=== PATIENT | male | born 2000 | race Hispanic/Latino ===

== ENCOUNTER 2023-05-20 09:09 | Emergency (ER) | payer SELFPAY ==
[2023-05-20 09:14] VITALS: BP 138/88
--- NOTE | 2023-05-20 09:49 | ED.GENMED ---
History of Present Illness
General
Chief Complaint: Skin Surface Trauma
Source: patient
Exam Limitations: none
Time Seen by Provider: 05/20/23 09:30
Travel History
Have you had any contact with someone who has COVID-19?: No
Do you have any symptoms of coronavirus? Fever > 100 degrees, chills, cough, shortness of breath, sore throat, loss of taste or smell, muscle aches, or headache?: No
History of Present Illness
History of Present Illness:
22-year-old male caught his left hand in a coiled machine at work. Significant injury to his left third and fourth digit. Tetanus is up-to-date. No allergies.
Past History
Past History
ED Past Medical History: None
Review of Systems
Review of Systems
All Other Systems: Not applicable
Phy Exam
Physical Exam
Physical Exam:
General: Nontoxic appearing in no distress
Skin: Warm and dry, no rash
Neuro: Alert, nontoxic, grossly nonfocal
Psychiatric: Good eye contact and appropriate
Musculoskeletal: Left hand gloved with blood at the tips of the third and fourth digit. Palpable deformity at the tips with likely amputation into the distal glove of the tips.
Course
Orders/Labs/Results
Orders:
Orders
05/20/23 10:07
CeFAZolin 1 GRAM [Ancef] 1 gram in 5 ml IV NOW
05/20/23 10:22
Hand, Left 3 View [CR Hand - Left Min 3 Views] Urgent
Comment:
Reason For Exam: Amputated third and fourth digit
Vital Signs
Initial and Last Documented VS:
Initial Vital Signs
Temp Resp BP
98.1 F 18 138/88
05/20/23 09:14 05/20/23 09:14 05/20/23 09:14
Last Documented Vital Signs
Temp Pulse Resp BP Pulse Ox
98.1 F 61 16 148/77 99
05/20/23 09:14 05/20/23 11:19 05/20/23 11:19 05/20/23 11:19 05/20/23 11:19
*Pulse Oximetry
Patient hypoxic: no
*Critical Care Note
Total Time (30-74mins, 75-104mins- exclusive of procedures): Not Applicable
Update Note
Update Note:
Clot was carefully cut off. Total amputation third and fourth digit. Irrigated 1% bupivacaine digital block done to the third and fourth digit. Amputated parts were carefully irrigated with saline covered with sterile saline gauze and packed with
ice. Orthopedics contacted awaiting further opinion antibiotics ordered.
1045.... [facility] was contacted about 30 minutes ago. Waiting for callback. Our orthopedic replied that this should be sent to a transplant center. Awaiting callback
1100... Pictures of the amputated pieces along with x-rays were sent to the doctor Pj at [facility]. He stated these were not transplantable and to dress them and follow-up with closure is reasonable. Discussed with our orthopedist
who has arrangements for this to be done this week. Discussed with patient.
ED Attending Note
-
Portions of this chart may have been created with voice recognition software.� Occasional wrong word or��sound alike� substitutions may have occurred due to the inherent limitations of voice recognition software.
Discharge Plan
Departure
Patient Disposition: Home (Routine Discharge)
Date of Disposition: 05/20/23
Time of Disposition: 11:12
Patient with high blood pressure during this ER visit?: Yes
Discharge Problem:
Amputated third and fourth digit
Instructions: Amputation of the Finger or Fingertip (DC), BLOOD PRESSURE
Prescriptions:
New
cephalexin 500 mg capsule
500 mg PO QID 7 Days Qty: 28 0RF
Referrals:
Bushra Ohara, [Active] - Follow up in 2-3 days
NONE,* [Family Provider] -
Activity Restrictions/Additional Instructions:
Call the orthopedist listed above Monday morning. He has arranged for his partner, Dr. Mccrary to give further care for this this week.
Take antibiotics as directed
Keep wounds covered
Advil or Motrin for pain
Another option would be Dr. Oliva at [facility]. If for some reason the above physician does not work out he states he would be happy to reevaluate and give further care for this this week.
Your prescription was sent to the [facility] pharmacy on [address] in [place]
Interventions
Interventions:
*Risk Screen - Suicide Last Done: 05/20/23 09:48
*General Assessment Last Done: 05/20/23 09:48
*Neglect/Abuse Screening Last Done: 05/20/23 09:48
ED- Fall Risk Assessment Last Done: 05/20/23 11:26
*ED COVID-19 Vaccine History Last Done: 05/20/23 09:48
*Nursing Disposition Last Done: 05/20/23 11:26
ED-Skin Assessment Last Done: 05/20/23 09:46
Discharge Date and Time
Discharge Date/Time: 05/20/23 11:46
[2023-05-20] MEDS: ANCEF 5 IV (10:30)
[2023-05-20 10:31] VITALS: BP 130/73
[2023-05-20 11:19] VITALS: BP 148/77
== END 2023-05-20 11:46 | disposition home or self-care (01) ==
LOC: EMR 09:09
PROVIDERS: EMERGENCY PHYSICIAN Emergency Medicine
DX: S68.123A Partial traumatic metacarpophalangeal amputation of left middle finger, initial encounter (principal); S68.125A Partial traumatic metacarpophalangeal amputation of left ring finger, initial encounter; W31.89XA Contact with other specified machinery, initial encounter; Y99.0 Civilian activity done for income or pay; R03.0 Elevated blood-pressure reading, without diagnosis of hypertension
CPT/HCPCS: 99285; 96374; 64400; 73130

== ENCOUNTER 2023-05-25 06:37 | Day surgery (SDC) | payer OTHER, SELFPAY ==
[2023-05-25] VITALS (11 sets, daily range): BP systolic 104–136; BP diastolic 38–61; BMI 26.5
[2023-05-25] MEDS: TYLENOL 1000 MG PO (14:29)
[2023-05-25] MEDS: NORMOSOL-R 1000 IV (14:30)
== END 2023-05-25 19:20 | disposition home or self-care (01) ==
LOC: SDS 06:37
PROVIDERS: ATTENDING PHYSICIAN Orthopaedic Surgery
DX: S68.623A Partial traumatic transphalangeal amputation of left middle finger, initial encounter (principal); S68.625A Partial traumatic transphalangeal amputation of left ring finger, initial encounter; W31.82XA Contact with other commercial machinery, initial encounter; Y99.0 Civilian activity done for income or pay
CPT/HCPCS: 26236 ×2

== ENCOUNTER 2023-05-25 23:17 | Emergency (ER) | payer OTHER, SELFPAY ==
[2023-05-25 23:19] VITALS: BP 118/60
[2023-05-25 23:36] VITALS: BMI 25.7
[2023-05-25 23:39] VITALS: BP 125/52
--- NOTE | 2023-05-25 23:51 | ED.GENMED ---
History of Present Illness
General
Chief Complaint: Post Operative Problem(s)
Source: patient
Time Seen by Provider: 05/25/23 23:42
Travel History
Have you had any contact with someone who has COVID-19?: No
Do you have any symptoms of coronavirus? Fever > 100 degrees, chills, cough, shortness of breath, sore throat, loss of taste or smell, muscle aches, or headache?: No
History of Present Illness
History of Present Illness:
22-year-old male status postrepair of left middle and ring finger amputation done earlier today by orthopedic surgeon, Dr. Mccrary, who approximately 30 minutes prior to arrival developed body shaking which is now fully resolved. Patient and
girlfriend were concerned prompting them to bring him to the emergency department today. Patient has been taking his antibiotics, Motrin/Tylenol and oxycodone as needed for pain as directed. He has no fevers, body aches, abdominal pain, nausea,
vomiting or any other concerns. Patient states all symptoms that her initially wanting him to come to the emergency department are now fully resolved.
Past History
Past History
ED Past Medical History: None
ED Past Surgical History: Orthopedic
Social History
Tobacco: Non-smoker
Alcohol: None
Drug: None
Personal: Single
Living: with family
Employment: Employed
Review of Systems
Review of Systems
All Other Systems: ROS reviewed and negative except as documented in HPI and ROS
Phy Exam
Physical Exam
Physical Exam:
GENERAL: Alert , in no apparent distress
EYE: conjunctiva clear
Head: Normocephalic atraumatic
NECK: Supple,
ENT: mmm.
Heart: Regular rate and rhythm, no murmur
LUNGS: no acute respiratory distress, lungs clear to auscultation
NEUROLOGICAL: Alert and oriented, atremulous
SKIN: Warm and dry, skin intact.
MUSCULOSKELETAL: well perfused. Large splint/bandages/Titi wrap in place. Exposed digits cap refill is less than 2 seconds.
PSYCH: Normal and appropriate interaction.
Scores
Heart Failure Risk
Heart Failure Risk Score: Not Applicable
Heart Score for Chest Pain Patients
STEMI patient?: Not applicable
Withdrawal Assessment of Alcohol
Withdrawal Assessment Completed?: Not applicable
Course
Vital Signs
Initial and Last Documented VS:
Initial Vital Signs
Temp Pulse Resp BP Pulse Ox
98.4 F 114 18 118/60 100
05/25/23 23:19 05/25/23 23:19 05/25/23 23:19 05/25/23 23:19 05/25/23 23:19
Last Documented Vital Signs
Temp Pulse Resp BP Pulse Ox
98.4 F 114 18 125/52 95
05/25/23 23:19 05/25/23 23:19 05/25/23 23:19 05/25/23 23:39 05/25/23 23:39
MDM/Problems Addressed
Differential Diagnosis Includes:
Postoperative pain, given surgery earlier today I did have minimal concern for an acute infection, I do not have concern for bacteremia
MDM/Problems Addressed:
22-year-old male presenting emergency department for evaluation after he had an episode of shaking approximately 30 prior to arrival. No further symptoms on arrival to the ER. Patient is otherwise stable appearing, afebrile and in no acute
distress. I do think it is reasonable for patient to be discharged home and continue his outpatient management with medications as prescribed. Aware of return precautions emergency department but otherwise stable for discharge
*Pulse Oximetry
Patient hypoxic: no
*First Grade Teacher Interpretation
Rate: normal
Rhythm: sinus
*Critical Care Note
Total Time (30-74mins, 75-104mins- exclusive of procedures): Not Applicable
Data Reviewed
Review of Other/Old Records Reveals: Radiology Studies and Operative Reports
Source: patient
ED Attending Note
-
Portions of this chart may have been created with voice recognition software.� Occasional wrong word or��sound alike� substitutions may have occurred due to the inherent limitations of voice recognition software.
Discharge Plan
Departure
Patient Disposition: Home (Routine Discharge)
Date of Disposition: 05/25/23
Time of Disposition: 23:51
Patient with high blood pressure during this ER visit?: No
Discharge Problem:
Post-operative pain
Instructions: Postoperative Pain (DC)
Prescriptions:
No Action
cephalexin 500 mg capsule
500 mg PO QID 7 Days Qty: 28 0RF
Interventions
Interventions:
*Risk Screen - Suicide Last Done: 05/25/23 23:19
*General Assessment Last Done: 05/25/23 23:19
*Neglect/Abuse Screening Last Done: 05/25/23 23:19
ED- Fall Risk Assessment Last Done: 05/25/23 23:19
*ED COVID-19 Vaccine History Last Done: 05/25/23 23:19
ED-Skin Assessment Last Done: 05/25/23 23:37
[2023-05-26] VITALS: BP 123/47
== END 2023-05-26 00:07 | disposition home or self-care (01) ==
LOC: EMR 23:17
PROVIDERS: EMERGENCY PHYSICIAN Emergency Medicine
DX: G89.18 Other acute postprocedural pain (principal); Y99.0 Civilian activity done for income or pay
CPT/HCPCS: 99281

== ENCOUNTER 2023-06-13 06:12 | Day surgery (SDC) | payer OTHER, SELFPAY ==
[2023-06-13] VITALS (9 sets, daily range): BP systolic 97–149; BP diastolic 48–64; BMI 26.5; BMI 22.1
[2023-06-13] MEDS: CELEBREX 200 MG PO (07:58)
[2023-06-13] MEDS: TYLENOL 1000 MG PO (07:58)
== END 2023-06-13 11:52 | disposition home or self-care (01) ==
LOC: SDS 06:12
PROVIDERS: ATTENDING PHYSICIAN Orthopaedic Surgery
DX: T87.81 Dehiscence of amputation stump (principal); Y93.89 Activity, other specified; S68.113A Complete traumatic metacarpophalangeal amputation of left middle finger, initial encounter; X58.XXXA Exposure to other specified factors, initial encounter; Z98.890 Other specified postprocedural states
CPT/HCPCS: 15574; 15620

== ENCOUNTER 2024-05-08 16:16 | Emergency (ER) | payer BC, SELFPAY ==
[2024-05-08 16:22] VITALS: BP 123/85
--- NOTE | 2024-05-08 16:25 | ED.GENMED ---
ED Provider Triage
<Praneeth Terrazas PA-C - Last Filed: 05/08/24 16:25>
-
Patient seen by provider in Triage?: Seen in Triage
Attestation: A medical screening examination has been initiated by a qualified medical provider. Based on the assessment performed at this time, it has been determined that an emergent medical condition may exist and the patient has been informed
that further medical evaluation and possible additional diagnostic testing may be needed.
HPI: 23-year-old male presents with a weeks worth of chest pain constant in nature localized in the center of his chest. This is not pleuritic. No shortness of breath. No recent travel or surgery. No fever or cough. Vital signs are stable. EKG
and labs and chest x-ray ordered
GENERAL: Alert , in no apparent distress
EYE: No visual abnormalities.
NECK: Trachea midline
ENT: No visible abnormalities.
LUNGS: No acute respiratory distress
NEUROLOGICAL: Alert and oriented
SKIN: Skin intact. No visible changes.
MUSCULOSKELETAL: Moving extremities normally
PSYCH: Normal and appropriate interaction.
This is a medical evaluation conducted in person to initiate diagnostic evaluation and provide initial therapeutics. Please see further documentation by the treating clinician.
History of Present Illness
<Praneeth Terrazas PA-C - Last Filed: 05/08/24 16:25>
General
Chief Complaint: Chest Pain
Time Seen by Provider: 05/08/24 16:40
<Gina Pearson PA-C - Last Filed: 05/08/24 19:25>
General
Source: patient
Exam Limitations: none
History of Present Illness
History of Present Illness:
23yoM with no significant past medical history presenting with his significant other for evaluation of chest pain. Symptoms have been intermittent for the past week. He reports a squeezing pain in his left chest that comes and goes. Nothing seems
to make the pain better or worse. The pain last for several hours at a time before resolving. He also felt shaky yesterday. He called his PCP today to get an appointment but was referred to the ED for evaluation. He is otherwise asymptomatic and
denies any fevers, cough, vomiting, shortness of breath, abdominal pain. No pleuritic or exertional pain. No family history of heart disease.
Past History
<Praneeth Terrazas PA-C - Last Filed: 05/08/24 16:25>
Past History
ED Past Medical History: None
ED Past Surgical History: Orthopedic
Social History
Tobacco: Non-smoker
Alcohol: None
Drug: None
Personal: Single
Living: with family
Employment: Employed
Phy Exam
<Gina Pearson PA-C - Last Filed: 05/08/24 19:25>
General Physical Exam
General Presentation: well appearing and no apparent distress
General age: appears stated age
General Skin: warm and dry
General Habitus: normal
General Mental: alert
ENT Exam
ENT Exam: normocephalic
Cardiovascular Exam
Cardiovascular Exam: regular rate/rhythm and no murmur
Pulmonary Exam
Pulmonary Exam: lungs clear, no respiratory distress, no rales, chest non tender, no crackles and no rhonchi
Neurological Exam
Neurological Exam: alert
Jerome Coma Scale
Eye Opening: Spontaneous
Verbal Response: Oriented
Motor Response: Obeys Commands
GCS Total Score: 15
Skin Exam
Skin Exam: normal color and warm/dry
Psychiatric Exam
Psychiatric Exam: normal mood/affect
Scores
<Gina Pearson PA-C - Last Filed: 05/08/24 19:25>
Heart Score for Chest Pain Patients
STEMI patient?: No
History: Slightly or Non-Suspicious
ECG: Normal
Age: </= 45 years
Risk Factors: No Risk Factors
Troponin: </= Normal Limit
Heart Score for Chest Pain Patients: 0
Heart Score Risk: 2.5% MACE over next 6 weeks
Course
<Praneeth Terrazas PA-C - Last Filed: 05/08/24 16:25>
Orders/Labs/Results
Orders:
Orders
05/08/24 16:23
Electrocardiogram (*1) Urgent
Reason for Study: Chest Pain
EKG- Treatment ONCE
05/08/24 16:24
CR Chest - 2 Views Urgent
Comment:
Reason For Exam: chest pain
05/08/24 16:35
Complete Blood Count/With Diff Urgent
Comprehensive Metabolic Panel Urgent
TSH Urgent
Comment: ADD ON
Troponin I Urgent
05/08/24 16:54
Add On- LAB Urgent
Tests Added?: TSH
Abnormal Lab Results
05/08/24
16:35
BUN 21 H mg/dl
(20)
05/08/24 16:35
05/08/24 16:35
Vital Signs
Initial and Last Documented VS:
Initial Vital Signs
Temp Pulse Resp BP Pulse Ox
98.2 F 75 16 123/85 98
05/08/24 16:22 05/08/24 16:22 05/08/24 16:22 05/08/24 16:22 05/08/24 16:22
Last Documented Vital Signs
Temp Pulse Resp BP Pulse Ox
98.2 F 75 16 123/85 98
05/08/24 16:22 05/08/24 16:22 05/08/24 16:22 05/08/24 16:22 05/08/24 16:22
<Gina Pearson PA-C - Last Filed: 05/08/24 19:25>
Orders/Labs/Results
Orders:
Orders
05/08/24 16:23
Electrocardiogram (*1) Urgent
Reason for Study: Chest Pain
EKG- Treatment ONCE
05/08/24 16:24
CR Chest - 2 Views Urgent
Comment:
Reason For Exam: chest pain
05/08/24 16:35
Complete Blood Count/With Diff Urgent
Comprehensive Metabolic Panel Urgent
TSH Urgent
Comment: ADD ON
Troponin I Urgent
05/08/24 16:54
Add On- LAB Urgent
Tests Added?: TSH
Abnormal Lab Results
05/08/24
16:35
BUN 21 H mg/dl
(920)
05/08/24 16:35
05/08/24 16:35
Vital Signs
Initial and Last Documented VS:
Initial Vital Signs
Temp Pulse Resp BP Pulse Ox
98.2 F 75 16 123/85 98
05/08/24 16:22 05/08/24 16:22 05/08/24 16:22 05/08/24 16:22 05/08/24 16:22
Last Documented Vital Signs
Temp Pulse Resp BP Pulse Ox
98.2 F 75 16 123/85 98
05/08/24 16:22 05/08/24 16:22 05/08/24 16:22 05/08/24 16:22 05/08/24 16:22
Christopherlt;Gina Pearson PA-C - Last Filed: 05/08/24 19:25>
MDM/Problems Addressed
Differential Diagnosis Includes:
23yoM here with chest pain x 1 week. Intermittent L sided squeezing pain. Denies exertional or pleuritic symptoms. VSS. He is well appearing in no distress. Exam is reassuring. Differential diagnosis includes but is not limited to: musculoskeletal,
GERD, pericarditis, pneumothorax, pneumonia, doubt ACS, doubt PE
Initial ED plan: Check cardiac labs, TSH, EKG, and CXR.
<Gina Pearson PA-C - Last Filed: 05/08/24 19:25>
*EKG
Interpreted by ED Provider?: Yes
EKG Intrepretation Date: 05/08/24
Heart Rate: 70
Rate: normal
Rhythm: sinus
[place]: normal axis
Interval: normal interval
QRS Pattern: right bundle branch block
Ischemia: no ischemia
*Critical Care Note
Total Time (30-74mins, 75-104mins- exclusive of procedures): Not Applicable
<Gina Pearson PA-C - Last Filed: 05/08/24 19:25>
Update Note
Update Note:
EKG shows NSR without ischemic changes and troponin within normal limits. Remainder of labs unremarkable including normal electrolytes, glucose, and TSH. CXR is clear. HEART score is 0. No indication for hospitalization. He was advised to f/u with
his PCP and ED return precautions discussed. Patient in agreement with plan and was discharged in stable condition.
ED Attending Note
<Praneeth Terrazas PA-C - Last Filed: 05/08/24 16:25>
-
Portions of this chart may have been created with voice recognition software.� Occasional wrong word or��sound alike� substitutions may have occurred due to the inherent limitations of voice recognition software.
Discharge Plan
Departure
Patient Disposition: Home (Routine Discharge)
Date of Disposition: 05/08/24
Time of Disposition: 18:54
Patient with high blood pressure during this ER visit?: No
Discharge Problem:
Atypical chest pain
Instructions: Chest Pain PCP Follow Up
Prescriptions:
No Action
No Current Medications
0
Referrals:
Luca Gonzalez CRNP [Family Provider] -
Activity Restrictions/Additional Instructions:
Please follow-up with your family doctor tomorrow. Return to the ER with any new or worsening symptoms.
Interventions
Interventions:
*Risk Screen - Suicide Last Done: 05/08/24 16:22
*General Assessment Last Done: 05/08/24 16:22
*ED COVID-19 Vaccine History Last Done: 05/08/24 16:22
*Nursing Disposition Last Done: 05/08/24 19:16
ED- Cardiac Assessment Last Done: 05/08/24 18:30
Discharge Date and Time
Discharge Date/Time: 05/08/24 19:16
Print Language: MEXICAN
[2024-05-08 16:51] LABS: % Basophils 0.4 % (0-2); % Eosinophils 1.7 % (0-6); % Immature Granulocytes 0.3 % (0-0.5); % Lymphocytes 34.5 % (20.5-51.1); % Monocytes 8.1 % (1.7-9.3); Absolute Eosinophils 0.1 10^3/uL (0-0.7); Absolute Lymphocytes 2.5 10^3/uL (1.2-3.4); Absolute Monocytes 0.6 10^3/uL (0.1-0.6); Hematocrit 44.4 % (39.0-52.0); Hemoglobin 15.7 g/dL (13.0-18.0); Mean Corp Hgb Conc. 35.4 g/dL (33.0-37.0); Mean Corpuscular Hgb 28.5 pg (27.0-31.0); Mean Corpuscular Volume 80.6 fL (80.0-94.0); Mean Platelet Volume 8.9 fL (7.4-10.4); Nucleated Red Blood Cells % 0 % (-); Platelet Count 211 10^3/uL (130-400); Red Blood Cell Count 5.51 10^6/uL (4.70-6.10); White Blood Cell Count 7.2 10^3/uL (4.8-10.8)
[2024-05-08 17:07] LABS: ALT (SGPT) 47 U/L (0-50); AST (SGOT) 43 U/L (17-59); Albumin 4.9 g/dl (3.5-5.0); Alkaline Phosphatase 81 U/L (38-126); Blood Urea Nitrogen 21 mg/dl (9-20); Calcium 9.7 mg/dl (8.4-10.2); Carbon Dioxide 26 mmol/L (22-30); Chloride 101 mmol/L (98-107); Glucose 94 mg/dl (70-99); Potassium 3.7 mmol/L (3.5-5.1); Sodium 137 mmol/L (135-145); Total Bilirubin 0.7 mg/dl (0.2-1.3); Total Protein 7.3 g/dl (6.3-8.2); eGFR > 60.00
[2024-05-08 17:14] LABS: Troponin I < 0.012 ng/ml
[2024-05-08 18:53] LABS: TSH 1.69 uIU/ml (0.47-4.68)
== END 2024-05-08 19:16 | disposition home or self-care (01) ==
LOC: EMR 16:16
PROVIDERS: Physician Assistant; EMERGENCY PHYSICIAN Emergency Medicine; FAMILY PHYSICIAN Nurse Practitioner Family
DX: R07.89 Other chest pain (principal)
CPT/HCPCS: 99283; 71046; 80053; 84443; 84484; 85025; 93005